=== PATIENT | female | born 1950 | race Caucasian/White ===

== ENCOUNTER → 2017-02-18 | Outpatient (REF) | LOC: ZLAB.WCH 17:51 | DX: Z01.89 Encounter for other specified special examinations (principal) ==

== ENCOUNTER 2020-10-24 10:59 | Inpatient (IN) | payer MEDICARE ==
[~2020-10-24] VITALS: Ht 152.4 cm; Wt 104.5 kg
[2020-11-28] VITALS (12 sets, daily range): BP systolic 129–161; BP diastolic 57–89; PULSE 54–105; TEMP 96.8–97.8
[2020-11-28 06:10] LABS: INR 1.2 (0.8-3.0); PROTHROMBIN TIME 13.1 SECONDS (9.7-12.8)
--- NOTE | 2020-11-28 06:27 | NUR ---
TO RM 8 0530- ALERT ORIENTED X3, VERBALIZED UNDERSTANDING AND SIGNED CONSENT. UPON PUTTING ON ANTONIO HOSE, PATIENT STARTED CRYING AND STATED IT HURT TOO BAD. ANTONIO HOSE ON R FOOT REMOVED.
[2020-11-28] MEDS ORDERED: LOVENOX 8080 MG/0.8 SQ (06:42)
[2020-11-28] MEDS ORDERED: FOLIC ACID 40400 MCG PO (06:43)
[2020-11-28] MEDS ORDERED: FERROUS SU325 MG/TAB PO (06:43)
[2020-11-28] MEDS ORDERED: VITAMIN C500 MG PO (06:44)
[2020-11-28] MEDS ORDERED: NORVASC 5MG5 MG/TAB PO (06:45)
[2020-11-28] MEDS ORDERED: LEXAPRO 10MG10 MG PO (06:45)
[2020-11-28] MEDS ORDERED: LASIX 40MG TABL40 MG PO (06:46)
[2020-11-28] MEDS ORDERED: CLARITIN 1010 MG/TAB PO (06:46)
[2020-11-28] MEDS ORDERED: DITROPAN XL 5MG5 M1 PO (06:47)
[2020-11-28] MEDS ORDERED: KLOR-CON M1010 MEQ PO (06:48)
[2020-11-28] MEDS ORDERED: ACCUPRIL40MGTAB PO (06:49)
[2020-11-28] MEDS ORDERED: PRESERVISION1 SGL PO (06:50)
[2020-11-28] MEDS ORDERED: COUMADIN 5MG5 MG/TAB PO (06:51)
[2020-11-28] MEDS ORDERED: COUMADIN 22.5 MG/TAB PO (06:51)
[2020-11-28] MEDS ORDERED: TYLENOL 500MG500 MG PO (06:52)
[2020-11-28] MEDS ORDERED: PROTONIX 40MG T40 MG PO (06:53)
[2020-11-28] MEDS ORDERED: INDOCIN50 MG PO (06:53)
[2020-11-28] MEDS ORDERED: CALCIUM CARBON650 M2 PO (06:54)
[2020-11-28] MEDS ORDERED: VITAMIN D 400400 IU PO (06:56)
[2020-11-28] MEDS ORDERED: THE MEDICINE S200 M2 PO (06:58)
[2020-11-28] MEDS ORDERED: MASON NATURAL G1 CAP PO (06:58)
[2020-11-28] MEDS ORDERED: OMEGA-3 1000 MG1 CAP PO (06:59)
--- NOTE | 2020-11-28 19:30 | NUR ---
Returned to bed from chair. Assessment complete. Lungs clear. Heart sounds normal. Bowels active x4. Pulses present throughout. No edema noted. IV left forearm without complications. Reports 8/10 pain in left knee. Bulky dressing in place with ice pack. CDI. Will provide with pain medications. Denies other needs at this time. Call light in reach.
--- NOTE | 2020-11-28 20:01 | NUR ---
Patient assisted back to bed. She sat up in the chair for dinner & tolerated. She voided on beside commde without problem. Patient has struggled with pain this afternoon. Medications per orders see EMar. Patient was moaning & graoning in pain & even tearful at times. Iv & PO medications used per orders. Iced & elevated. Good pulses. Lizandro joanie refused. Scds on. Ivf per orders. Report to night nurse
[2020-11-29 00:03] VITALS: BP 161/79; PULSE 65; TEMP 98.3
--- NOTE | 2020-11-29 00:12 | NUR ---
Patient reported 7/10 pain. Given PRN morphine. Also moved to recliner. Denies other needs. Call light in reach.
--- NOTE | 2020-11-29 01:56 | NUR ---
Resting in recliner asleep. Call light in reach.
[2020-11-29 03:34] VITALS: BP 122/47; PULSE 72; TEMP 97.7
--- NOTE | 2020-11-29 03:52 | NUR ---
Patient reported pain. Provided with PRN oxycodone. Denies other needs. Up to restroom.
--- NOTE | 2020-11-29 05:40 | NUR ---
Patient required PRN morphine and oxycodone for pain control during night. Patient had difficulties with comfort due to pain. Otherwise uneventful night. Resting in bed this Am. Call light in reach.
--- NOTE | 2020-11-29 06:40 | NUR ---
Report given to KATT Dale
[2020-11-29 07:44] LABS: HEMOGLOBIN 11.5 g/dl (12.5-16.0)
[2020-11-29 07:51] LABS: HEMATOCRIT 36.3 % (37.0-47.0)
[2020-11-29 08:00] VITALS: BP 138/64; PULSE 55; TEMP 97.7
--- NOTE | 2020-11-29 10:03 | NUR ---
PT UP TO RECLINER WITH THERAPY THIS AM. AMBULATED TO BR WITH STEADY GAIT. RETURNED TO RECLINER WITH SBAX1. PAIN CONTROLLED WITH PO MEDS AT THIS TIME. DRESSING TO LEFT KNEE CDI WITH OCCLUSIVE LORENA WRAP INPLACE.
[2020-11-29 11:56] VITALS: BP 103/49; PULSE 79; TEMP 97.5
--- NOTE | 2020-11-29 12:09 | NUR ---
First visit from the cloth cutting machine operator. No needs right now.
[2020-11-29 16:00] VITALS: BP 111/53; PULSE 74; TEMP 97.5
--- NOTE | 2020-11-29 16:40 | NUR ---
Zipper Measurer attempted to complete intake. The patient was hard to rouse. Will attempt at a later time.
--- NOTE | 2020-11-29 17:37 | NUR ---
PT VOIDING AND AMBULATING TO AND FROM BR. VERY SLEEPY THIS PM POSSIBLY R/T PAIN MEDS. VSS. DRESSING CHANGED PER ORDERS PT TOLERATED WELL.
--- NOTE | 2020-11-29 18:49 | NUR ---
REPORT TO ANGEL BOLIVAR.
--- NOTE | 2020-11-29 21:30 | NUR ---
Resting in bed. Assessment complete. Bases bilaterally diminished otherwise clear. Heart sounds normal. Bowels active x4. Pulses present throughout. Bilateral lower extremity edema +2. with discoloration. Reports 8/10 pain in left knee. Given PRN norco. Denies other needs at this time. Call light in reach.
[2020-11-29 22:21] VITALS: BP 129/58; PULSE 69; TEMP 98.3
--- NOTE | 2020-11-29 23:38 | NUR ---
Resting in bed. Denies needs. Call light in reach.
[2020-11-30 01:00] VITALS: BP 113/59; PULSE 58; TEMP 97.9
--- NOTE | 2020-11-30 02:10 | NUR ---
Resting in bed. Call light in reach.
[2020-11-30 04:00] VITALS: BP 114/51; PULSE 116; TEMP 97.8
--- NOTE | 2020-11-30 06:04 | NUR ---
Patient required PRN norco for pain control during night. Otherwise uneventful night. Resting in bed this AM. Call light in reach.
--- NOTE | 2020-11-30 06:40 | NUR ---
Report given to KATT Dale
[2020-11-30 07:39] VITALS: BP 107/39; PULSE 75; TEMP 98.1
[2020-11-30 07:50] LABS: HEMOGLOBIN 10.5 g/dl (12.5-16.0)
[2020-11-30 07:51] LABS: HEMATOCRIT 33.5 % (37.0-47.0)
[2020-11-30 08:08] LABS: INR 1.3 (0.8-3.0); PROTHROMBIN TIME 14.1 SECONDS (9.7-12.8)
--- NOTE | 2020-11-30 10:12 | NUR ---
PT UP WITH THERAPY. PAIN CONTROLLED WITH PO MEDS. EATING AND DRINKING SIN N/V. DRESSING TO LEFT KNEE CDI WITH AQUACELL OVER INCISION. PT PLANS ON DISCHARGE LATER THIS PM.
[2020-11-30 10:54] VITALS: BP 114/63; PULSE 66; TEMP 97.5
--- NOTE | 2020-11-30 11:16 | NUR ---
HELD BP MEDS AND LASIX D/T LOW BP THIS AM. NOTIFIED ARIANNA PATRICK.
[2020-11-30] MEDS ORDERED: SENOKOT S 50 MG1 TAB PO (12:08)
[2020-11-30] MEDS ORDERED: NORCO 325 MG-7.1 TAB PO (12:10)
[2020-11-30] MEDS ORDERED: ROXICODONE 55 MG/TAB PO (12:10)
--- NOTE | 2020-11-30 14:15 | NUR ---
DISCHARGE INSTRUCTIONS REVIEWED WITH PT. QUESTIONS ANSWERED. PT TAKEN TO ED ENTRANCE FOR DISCHARGE TO POV.
== END 2020-11-30 14:17 | disposition home or self-care (01) | DRG 470 ==
LOC: INPTSU 11-28 05:11 → JCC 11-28 07:30
PROVIDERS: ADMIT Orthopaedic Surgery
PROC: 0SRD0JZ Replacement of Left Knee Joint with Synthetic Substitute, Open Approach (ICD-10-PCS; principal; 2020-11-28 07:30)
DX: M17.12 Unilateral primary osteoarthritis, left knee (principal); E66.01 Morbid (severe) obesity due to excess calories; G89.29 Other chronic pain; M19.90 Unspecified osteoarthritis, unspecified site; I10 Essential (primary) hypertension; I48.91 Unspecified atrial fibrillation; Z98.51 Tubal ligation status; Z90.710 Acquired absence of both cervix and uterus
CPT/HCPCS: A9284; C1776; J0690; J1650; J2250; J2270; J2405; J2704; J3010; J7030; J7120

== ENCOUNTER → 2020-11-15 | Outpatient (REF) ==
[~2020-11-15] MED LIST: ACCUPRIL40MGTAB PO; CALCIUM CARBON650 M2 PO; CLARITIN 1010 MG/TAB PO; COUMADIN 22.5 MG/TAB PO; COUMADIN 5MG5 MG/TAB PO; DITROPAN XL 5MG5 M1 PO; FERROUS SU325 MG/TAB PO; FOLIC ACID 40400 MCG PO; INDOCIN50 MG PO; KLOR-CON M1010 MEQ PO; LASIX 40MG TABL40 MG PO; LEXAPRO 10MG10 MG PO; LOVENOX 8080 MG/0.8 SQ; MASON NATURAL G1 CAP PO; NORVASC 5MG5 MG/TAB PO; OMEGA-3 1000 MG1 CAP PO; PRESERVISION1 SGL PO; PROTONIX 40MG T40 MG PO; THE MEDICINE S200 M2 PO; TYLENOL 500MG500 MG PO; VITAMIN C500 MG PO; VITAMIN D 400400 IU PO
== END ==
LOC: ZLAB.WCH 17:00
DX: Z01.89 Encounter for other specified special examinations (principal)

== ENCOUNTER 2022-10-09 15:48 | Inpatient (IN) | payer MEDICARE ==
[~2022-10-09] VITALS: Ht 152.4 cm; Wt 88.4 kg
[~2022-10-09 15:48] MED LIST changes: +NORCO 325 MG-7.1 TAB PO; +ROXICODONE 55 MG/TAB PO; +SENOKOT S 50 MG1 TAB PO
[2022-11-26] VITALS (10 sets, daily range): BP systolic 113–180; BP diastolic 65–79; PULSE 44–93; TEMP 97.5–97.7
[2022-11-26] MEDS ORDERED: NORVASC 5MG5 MG/TAB PO (07:40)
[2022-11-26] MEDS ORDERED: LOVENOX120 MG/0.8 SQ (07:41)
[2022-11-26] MEDS ORDERED: LEXAPRO 10MG10 MG PO (07:41)
[2022-11-26] MEDS ORDERED: NORCO 325 MG-7.1 TAB PO (07:42)
[2022-11-26] MEDS ORDERED: ALAVERT10 M1 PO (07:42)
[2022-11-26] MEDS ORDERED: LASIX 40MG TABL40 MG PO (07:42)
[2022-11-26] MEDS ORDERED: DITROPAN XL10 MG PO (07:43)
[2022-11-26] MEDS ORDERED: MOBIC 7.5MG7.5 MG PO (07:43)
[2022-11-26] MEDS ORDERED: GLUCOPHAGE500 MG/TAB PO (07:43)
[2022-11-26] MEDS ORDERED: PROTONIX 40MG T40 MG PO (07:44)
[2022-11-26] MEDS ORDERED: ACCUPRIL40MGTAB PO (07:45)
[2022-11-26] MEDS ORDERED: K-DUR 10 MEQ T10 MEQ PO (07:45)
[2022-11-26] MEDS ORDERED: ZANAFLEX2 MG PO (07:45)
[2022-11-26] MEDS ORDERED: COUMADIN 5MG5 MG/TAB PO (07:46)
[2022-11-26] MEDS ORDERED: CALCIUM 600MG+D1 TAB PO (07:47)
[2022-11-26] MEDS ORDERED: COUMADIN4 MG PO (07:47)
[2022-11-26] MEDS ORDERED: FERROUS SU325 MG/TAB PO (07:48)
[2022-11-26] MEDS ORDERED: DULCOLAX STOOL100 MG PO (07:48)
[2022-11-26] MEDS ORDERED: GLUCOSAMINE/CHO1 CA1 PO (07:49)
[2022-11-26] MEDS ORDERED: MELATONIN5 M1 PO (07:49)
[2022-11-26] MEDS ORDERED: PRESERVISION1 SGL PO (07:49)
[2022-11-26] MEDS ORDERED: VITAMIN C500 MG PO (07:50)
[2022-11-26] MEDS ORDERED: MASON NATURAL2000 IU PO (07:50)
[2022-11-26 13:21] LABS: CALCIUM 9.4 mg/dL (8.4-10.2); CREATININE, serum 0.78 mg/dL (0.57-1.11); POTASSIUM 3.7 mmol/L (3.5-4.5)
[2022-11-26 13:42] LABS: TSH w REFLEX 1.043 uIU/mL (0.350-4.940)
--- NOTE | 2022-11-26 19:30 | NUR ---
PT TEARFUL, IN BED. REPORTS PAIN TO LEFT HIP. MEDICATED WITH SCHEDULED ES TYLENOL AND MORPHINE 2MG IVP. HAS RFA IV SITE, FLUIDS INFUSING WITHOUT PROBELM. DRSG TO LEFT HIP BULKY, D/I. ICE PACK ON.
--- NOTE | 2022-11-26 20:03 | NUR ---
Patient resting in bed. She has been up to the bathroom & voided & been up in chair twice today. Walker & gaitbelt used. Patient has struggled with pain rating from 6 to 8. Medication given per orders. Ice pack to hip. Occlusive hip dressing on. Lizandro hose removed, thigh high hose to tight on her thighs, patient going to bring in her own knee highs from home. Scds ble. She has tolerated meals. Patient blood sugar elevated, but patient wanted to just take her home metformin, no sliding scale insulin with evening meal. Patient had hospitalist & cardilogy see her this afternoon & orders obtained. Bradycardia has improved. Tele remains on. Report to Patience to resume cares
--- NOTE | 2022-11-26 21:33 | NUR ---
PT IN BED, MORE CALM. HS MEDS GIVEN INCLUDING OXYCODONE 5MG PO AT THIS TIME. ASSISTED TO BATHROOM, GAIT SLOW/STEADY. VOIDS AND BACK TO BED. PT TAKING ORAL FLUIDS WELL, INT TO RFA AT THIS TIME.
[2022-11-27] VITALS (7 sets, daily range): BP systolic 111–164; BP diastolic 53–79; PULSE 52–82; TEMP 97.5–98.5
--- NOTE | 2022-11-27 00:45 | NUR ---
PT AWAKE. SCHEDULED ES TYLENOL AND OXCODONE 5MG PO FOR LT HIP PAIN.
--- NOTE | 2022-11-27 06:34 | NUR ---
SCHEDULED AM MEDS GIVEN INCLUDING OXYCODONE FOR LT HIP PAIN. IS UP IN RECLINER AT BEDSIDE. ICE PACK IN PLACE.
[2022-11-27 06:52] LABS: INR 1.3 (0.8-3.0); PROTHROMBIN TIME 15.2 SECONDS (9.7-12.8)
[2022-11-27 07:02] LABS: HEMOGLOBIN 11.4 g/dl (12.5-16.0)
[2022-11-27 07:11] LABS: HEMATOCRIT 35.7 % (37.0-47.0)
--- NOTE | 2022-11-27 10:12 | NUR ---
PT CONTINUES TO RATE PAIN HIGH,.8/10 AFTER PAIN MEDS GIVEN. PATIEHT DOES NOT APPEAR TO BE IN DISTRESS BUT WHEN ASKED THE PAIN SUDDENLY BECOMES GREAT. PT WORKING WITH THEDEDE THIS AM.
--- NOTE | 2022-11-27 10:16 | NUR ---
SW met with the patient to discuss discharge plan. The patient lives alone in [place]. She reports independence with ADLs and has a cane, walker, and wheelchair. The patient's primary care provider is Lacy Walls PA-C and she receives her medications from [facility]. The patient's DPOA-HC is in EMR and it designates her late . The alternates are her sons: Romero (#ph#[phone], [place]) and Casey (ph#[phone], [place]). The patient plans to return home and receive outpatient PT at [facility] upon discharge. She states that her son, Casey, will be staying with her particle board supervisor and then other family members will be rotating care for her. She had no concerns for SW. No additional needs at this time. *Discharge plan: home with family support and outpatient PT*
--- NOTE | 2022-11-27 14:04 | NUR ---
Aracelis: Holiness Situation: intelligence chief stopped by room on rounds Background: pt was resting in her chair and content Assessment: pt has no needs right now. Pt appreciated the visit Recommendation: intelligence chief will follow up as needed
--- NOTE | 2022-11-27 18:17 | NUR ---
DRESSING CHANGE COMPLETE, PT TOLERATED WELL. INCISION WELL APPROXIMATED WITH NO DRAINAGE NOTED.
--- NOTE | 2022-11-27 20:33 | NUR ---
PT IN RECLINER CHAIR. MEDICATED WITH HS MEDS INCLUDING OXYCODONE 10MG PO FOR PAIN. INT TO RFA. LT HIP WITH WALDO BAXTER D/I, ICE PACK IN PLACE. REPORTS BETTER PAIN CONTROL TODAY.
--- NOTE | 2022-11-27 23:53 | NUR ---
PT ASSISTED TO BATHROOM AND BACK TO BED. ASKING FOR PAIN MEDS, OXYCODONE 5MG PO GIVEN AT THIS TIME.
--- NOTE | 2022-11-28 00:15 | NUR ---
REPEATED OXYCODONE 5MG PO FOR LT HIP PAIN.
[2022-11-28 04:21] VITALS: BP 112/50; PULSE 61; TEMP 97.7
--- NOTE | 2022-11-28 07:00 | NUR ---
Pt doing well this morning. She is currently sitting up in the chair, reports feeling well and pain tolerable. Ice to her left knee. Breakfast has been ordered
--- NOTE | 2022-11-28 08:00 | NUR ---
PT in working with pt at this time
[2022-11-28 08:13] LABS: INR 1.4 (0.8-3.0); PROTHROMBIN TIME 16.4 SECONDS (9.7-12.8)
[2022-11-28 08:39] VITALS: BP 127/61; PULSE 72; TEMP 97.8
[2022-11-28 08:53] LABS: HEMOGLOBIN 10.5 g/dl (12.5-16.0)
[2022-11-28 08:56] LABS: CALCIUM 9.2 mg/dL (8.4-10.2); CREATININE, serum 0.86 mg/dL (0.57-1.11); POTASSIUM 4.4 mmol/L (3.5-4.5)
[2022-11-28 08:59] LABS: HEMATOCRIT 34.3 % (37.0-47.0)
[2022-11-28] MEDS ORDERED: CELEBREX 200MG200 MG PO (11:54)
[2022-11-28] MEDS ORDERED: ROXICODONE 55 MG/TAB PO (11:54)
[2022-11-28] MEDS ORDERED: ULTRAM 50MG TAB50 MG PO (11:55)
[2022-11-28] MEDS ORDERED: SENOKOT S 50 MG1 TAB PO (11:58)
--- NOTE | 2022-11-28 12:00 | NUR ---
Pt continues to do well. Pain well controlled with oral pain medication. Pt does have help at home. Getting up with stand by assist. Pt reports that her ride is coming from [employer]
[2022-11-28 12:54] VITALS: BP 132/69; PULSE 58; TEMP 97.7
--- NOTE | 2022-11-28 13:00 | NUR ---
INT removed from right hand. OT in with pt assisting with a shower. NO needs, pt reports the pain medication has helped
--- NOTE | 2022-11-28 14:16 | NUR ---
Reviewed discharge instructions with pt to include follow up appointment and prescriptions. Pt did shower with OT, no issues. PRN pain medication given at this time. Awaiting afternoon PT session and pt reported she would call her ride
== END 2022-11-28 16:00 | disposition home or self-care (01) | DRG 470 ==
LOC: SURG 11-26 06:26 → INPTSU 11-26 06:26 → SURG 11-26 07:30
PROVIDERS: Internal Medicine; Physician Assistant; ADMIT Orthopaedic Surgery
PROC: 0SRB04Z Replacement of Left Hip Joint with Ceramic on Polyethylene Synthetic Substitute, Open Approach (ICD-10-PCS; principal; 2022-11-26 08:30)
DX: M16.12 Unilateral primary osteoarthritis, left hip (principal); I48.19 Other persistent atrial fibrillation; Z68.41 Body mass index [BMI] 40.0-44.9, adult; E11.9 Type 2 diabetes mellitus without complications; I10 Essential (primary) hypertension; R00.1 Bradycardia, unspecified; I48.91 Unspecified atrial fibrillation; E66.9 Obesity, unspecified; Z96.653 Presence of artificial knee joint, bilateral; M10.9 Gout, unspecified; F32.9 Major depressive disorder, single episode, unspecified; E78.00 Pure hypercholesterolemia, unspecified; K21.9 Gastro-esophageal reflux disease without esophagitis; G89.29 Other chronic pain; I08.3 Combined rheumatic disorders of mitral, aortic and tricuspid valves; Z23 Encounter for immunization; Z90.710 Acquired absence of both cervix and uterus; Z91.048 Other nonmedicinal substance allergy status; Z86.73 Personal history of transient ischemic attack (TIA), and cerebral infarction without residual deficits; Z79.01 Long term (current) use of anticoagulants; Z79.84 Long term (current) use of oral hypoglycemic drugs; Z85.828 Personal history of other malignant neoplasm of skin; Z90.89 Acquired absence of other organs
CPT/HCPCS: A4314; A9284; C1713; C1776; J0690; J1200; J1650; J1815; J2250; J2270; J2370; J2704; J7030; J7120